=== PATIENT | male | born 1960 | race Caucasian/White ===

== ENCOUNTER 2025-01-01 11:20 | Inpatient (IN) ==
[2025-01-01] MEDS ORDERED: VANCOMYCIN PER PHARMACY IV SCH (12:15)
[2025-01-01 12:20] LABS: Basophils # (Auto) 0.02 K/mcL (0.00-0.30); Basophils % (Auto) 0.2 % (0.0-2.0); Eosinophils # (Auto) 0.51 K/mcL (0.00-0.70); Eosinophils % (Auto) 5.1 % (0.0-7.0); Hematocrit 45.4 % (40.1-51.0); Hemoglobin 14.8 g/dL (13.7-17.5); Lymphocytes # (Auto) 2.50 K/mcL (1.50-4.80); Lymphocytes % (Auto) 25.1 % (15.5-49.0); Mean Corpuscular HGB Conc 32.6 g/dL (31.0-36.0); Monocytes # (Auto) 1.00 K/mcL (0.10-0.90); Monocytes % (Auto) 10.0 % (1.0-12.0); Neutrophils % (Auto) 59.5 % (38.0-78.0); Platelet Count 298 K/mcL (140-440); RBC 5.25 M/mcL (4.63-6.08); WBC 10.0 K/mcL (4.5-11.0)
[2025-01-01 12:34] LABS: ALT/SGPT 16 U/L (<40); AST/SGOT 19 U/L (<40); Albumin 3.5 gm/dL (3.2-5.2); Albumin/Globulin Ratio 0.9 (1.0-2.3); Alkaline Phosphatase 114 U/L (39-117); Anion Gap 10.0 (8.0-16.0); Bilirubin,Total 0.5 mg/dL (0.1-1.0); Blood Urea Nitrogen 23 mg/dL (8-23); Calcium 9.1 mg/dL (8.6-10.4); Carbon Dioxide 25 mmol/L (22-30); Chloride 102 mmol/L (96-108); Globulin 3.9 gm/dL (2.2-3.7); Glucose 137 mg/dL (70-105); Potassium 3.6 mmol/L (3.3-5.1); Sodium 137 mmol/L (133-145)
[2025-01-01] MEDS ORDERED: VANCOMYCIN 2,000 MG in 0.9 % SODIUM CHLORIDE 500 ML IV SCH (13:00)
[2025-01-01] MEDS ORDERED: ACETAMINOPHEN 325 MG TABLET PO PRN (14:17)
[2025-01-01] MEDS ORDERED: ONDANSETRON 4 MG/2 ML VIAL IV PRN (14:17)
[2025-01-01] MEDS ORDERED: SENNOSIDES 1 TABLET PO PRN (14:17)
[2025-01-01] MEDS: LACTATED RINGERS 1,000 ML IV SCH ×2 (14:20→18:18)
[2025-01-01] MEDS: MEROPENEM 1 GM in 0.9 % SODIUM CHLORIDE 50 ML IV SCH (15:46)
[2025-01-01] MEDS: 0.9 % SODIUM CHLORIDE 10 ML SYRINGE IV SCH ×2 (15:53→21:09)
[2025-01-01] MEDS ORDERED: IPRATROPIUM/ALBUTEROL 3 ML AMPUL.NEB NEB PRN (17:10)
[2025-01-01] MEDS ORDERED: HYDROmorphone 0.5 MG/0.5 ML SYRINGE IV PRN (17:10)
[2025-01-01] MEDS ORDERED: fentaNYL 100 MCG/2 ML VIAL IV PRN (17:10)
[2025-01-01] MEDS: PIPERACILLIN SODIUM/TAZOBACTAM 4.5 GM in DEXTROSE 5% IN WATER 50 ML IV ONE (21:09)
[2025-01-02] MEDS: PIPERACILLIN SODIUM/TAZOBACTAM 4.5 GM in DEXTROSE 5% IN WATER 100 ML IV SCH (00:13)
[2025-01-02 06:51] LABS: Basophils # (Auto) 0.01 K/mcL (0.00-0.30); Basophils % (Auto) 0.1 % (0.0-2.0); Eosinophils # (Auto) 0.72 K/mcL (0.00-0.70); Eosinophils % (Auto) 8.6 % (0.0-7.0); Hematocrit 42.6 % (40.1-51.0); Hemoglobin 13.8 g/dL (13.7-17.5); Lymphocytes # (Auto) 1.96 K/mcL (1.50-4.80); Lymphocytes % (Auto) 23.5 % (15.5-49.0); Mean Corpuscular HGB Conc 32.4 g/dL (31.0-36.0); Monocytes # (Auto) 0.98 K/mcL (0.10-0.90); Monocytes % (Auto) 11.8 % (1.0-12.0); Neutrophils % (Auto) 55.9 % (38.0-78.0); Platelet Count 254 K/mcL (140-440); RBC 4.89 M/mcL (4.63-6.08); WBC 8.3 K/mcL (4.5-11.0)
[2025-01-02 07:08] LABS: ALT/SGPT 17 U/L (<40); AST/SGOT 21 U/L (<40); Albumin 3.3 gm/dL (3.2-5.2); Albumin/Globulin Ratio 1.0 (1.0-2.3); Alkaline Phosphatase 103 U/L (39-117); Anion Gap 8.0 (8.0-16.0); Bilirubin,Total 0.5 mg/dL (0.1-1.0); Blood Urea Nitrogen 16 mg/dL (8-23); Calcium 8.8 mg/dL (8.6-10.4); Carbon Dioxide 27 mmol/L (22-30); Chloride 104 mmol/L (96-108); Globulin 3.4 gm/dL (2.2-3.7); Glucose 140 mg/dL (70-105); Potassium 3.8 mmol/L (3.3-5.1); Sodium 139 mmol/L (133-145)
[2025-01-02] MEDS: VANCOMYCIN 2,000 MG in 0.9 % SODIUM CHLORIDE 500 ML IV SCH (10:03)
[2025-01-02] MEDS: HEPARIN 5,000 UNIT/ML VIAL SQ SCH (20:38)
[2025-01-02] MEDS: HEPARIN 10 UNITS/ML 5ML FLUSH IV SCH ×2 (20:38)
[2025-01-02] MEDS: 0.9 % SODIUM CHLORIDE 10 ML SYRINGE IV SCH (20:39)
[2025-01-03 06:08] LABS: Basophils # (Auto) 0.02 K/mcL (0.00-0.30); Basophils % (Auto) 0.3 % (0.0-2.0); Eosinophils # (Auto) 0.62 K/mcL (0.00-0.70); Eosinophils % (Auto) 10.5 % (0.0-7.0); Hematocrit 43.1 % (40.1-51.0); Hemoglobin 13.9 g/dL (13.7-17.5); Lymphocytes # (Auto) 1.49 K/mcL (1.50-4.80); Lymphocytes % (Auto) 25.3 % (15.5-49.0); Mean Corpuscular HGB Conc 32.3 g/dL (31.0-36.0); Monocytes # (Auto) 0.63 K/mcL (0.10-0.90); Monocytes % (Auto) 10.7 % (1.0-12.0); Neutrophils % (Auto) 53.2 % (38.0-78.0); Platelet Count 255 K/mcL (140-440); RBC 4.97 M/mcL (4.63-6.08); WBC 5.9 K/mcL (4.5-11.0)
[2025-01-03 06:29] LABS: ALT/SGPT 16 U/L (<40); AST/SGOT 18 U/L (<40); Albumin 3.4 gm/dL (3.2-5.2); Albumin/Globulin Ratio 1.0 (1.0-2.3); Alkaline Phosphatase 103 U/L (39-117); Anion Gap 8.0 (8.0-16.0); Bilirubin,Total 0.4 mg/dL (0.1-1.0); Blood Urea Nitrogen 10 mg/dL (8-23); Calcium 8.8 mg/dL (8.6-10.4); Carbon Dioxide 25 mmol/L (22-30); Chloride 106 mmol/L (96-108); Globulin 3.5 gm/dL (2.2-3.7); Glucose 133 mg/dL (70-105); Potassium 3.5 mmol/L (3.3-5.1); Sodium 139 mmol/L (133-145)
[2025-01-03] MEDS: LISINOPRIL 20 MG TABLET PO SCH (08:35)
[2025-01-03] MEDS: TAMSULOSIN 0.4 MG CAPSULE PO SCH (08:35)
[2025-01-03] MEDS: HYDROCHLOROTHIAZIDE 25 MG TABLET PO SCH (08:35)
[2025-01-04 07:02] LABS: ALT/SGPT 19 U/L (<40); AST/SGOT 21 U/L (<40); Albumin 3.7 gm/dL (3.2-5.2); Albumin/Globulin Ratio 1.0 (1.0-2.3); Alkaline Phosphatase 108 U/L (39-117); Anion Gap 9.0 (8.0-16.0); Bilirubin,Direct 0.2 mg/dL (<0.3); Bilirubin,Total 0.5 mg/dL (0.1-1.0); Blood Urea Nitrogen 10 mg/dL (8-23); Calcium 9.2 mg/dL (8.6-10.4); Carbon Dioxide 26 mmol/L (22-30); Chloride 103 mmol/L (96-108); Globulin 3.8 gm/dL (2.2-3.7); Glucose 129 mg/dL (70-105); Phosphorous 4.0 mg/dL (2.5-4.5); Potassium 3.5 mmol/L (3.3-5.1); Sodium 138 mmol/L (133-145); Triglycerides 196 mg/dL (<150); Uric Acid 4.8 mg/dL (2.5-8.0)
[2025-01-04] MEDS ORDERED: LABETALOL HCL 20 MG/4 ML VIAL IV PRN (08:49)
[2025-01-04] MEDS: hydrALAZINE 20 MG/ML VIAL IV PRN (17:53)
[2025-01-05] MEDS: 0.9 % SODIUM CHLORIDE 10 ML SYRINGE IV PRN (10:05)
[2025-01-06] MEDS: ALTEPLASE 2 MG VIAL IV ONE ×2 (09:31)
[2025-01-06] MEDS: FEXOFENADINE 180 MG TABLET PO PRN (11:20)
[2025-01-06] MEDS: POLYETHYLENE GLYCOL 3350 17 GM PACKET PO PRN (12:42)
[2025-01-06] MEDS: ACETAMINOPHEN 1,000 MG/100 ML BAG IV PRN (19:42)
[2025-01-06] MEDS: MELATONIN 3 MG TABLET PO PRN (20:17)
[2025-01-07] MEDS ORDERED: NIRMATRELVIR/RITONAVIR 1 EACH BOX PO SCH (09:00)
[2025-01-07] MEDS: REMDESIVIR 200 MG in 0.9 % SODIUM CHLORIDE 250 ML IV ONE (09:42)
[2025-01-08] MEDS: REMDESIVIR 100 MG in 0.9 % SODIUM CHLORIDE 250 ML IV SCH (09:49)
[2025-01-08] MEDS: MEROPENEM 1 GM in 0.9 % SODIUM CHLORIDE 50 ML IV SCH (13:38)
== END 2025-01-08 14:45 | DRG 474 ==
LOC: ED 11:20 → MEDSUR 13:55
PROVIDERS: ADMIT Student in an Organized Health Care Education/Training Program; ATTEND Internal Medicine